=== PATIENT | male | born 1980 | race Two or more races ===

== ENCOUNTER 2024-04-26 12:26 | Emergency (ER) | payer MEDICAID, SELFPAY ==
[2024-04-26 12:42] VITALS: BP 147/91; PULSE 99; RESP 16; TEMP 37; O2SAT 100; BMI 26.4
--- NOTE | 2024-04-26 13:03 | PD.EDEAR ---
ED Ear RME/HPI General Chief complaint: Ear Stated complaint: LEFT EAR PAIN X 1 WK; MEDS RESCIBED FROM CLINIC Time Seen by Provider: 04/26/24 12:30 Source: patient Arrival date/time: 04/26/24 12:26 This is a 43-year-old male who presents to the emergency department with complaints of left ear plugging and pain x 2 weeks. Patient states he was seen by his PCP and prescribed ofloxacin in which he has completed his course. Reports his symptoms have not improved. Denies any other concerns or complaints. Mode of arrival: ambulatory Limitations: no limitations Related Data Previous Rx's ?Medication ?Instructions ?Recorded acetaminophen 325 mg/10.15 mL oral 650 mg (20.3 mL) feeding tube Q6HR 07/23/22 solution PRN Fever >101 #406 mL gabapentin 100 mg capsule 100 mg G-tube TID #30 caps 07/23/22 glycopyrrolate 1 mg tablet 1 mg PO BID #30 tabs 07/23/22 hydrochlorothiazide 12.5 mg capsule 25 mg (2 x 12.5 mg) feeding tube 07/23/22 QDAY #30 caps lactulose 20 gram/30 mL oral 20 g (30 mL) G-tube QID #1,200 mL 07/23/22 solution lisinopril 20 mg tablet 40 mg (2 x 20 mg) feeding tube 07/23/22 QDAY #30 tabs pantoprazole 40 mg intravenous 40 mg IV DAILY #1 ea 07/23/22 solution quetiapine 25 mg tablet 50 mg (2 x 25 mg) G-tube BID #30 07/23/22 tabs amoxicillin 875 mg-potassium 1 tab PO BID #14 tabs 04/26/24 clavulanate 125 mg tablet clotrimazole 1 % topical solution 1 applic topical BID #10 mL 04/26/24 Allergies Allergy/AdvReac Type Severity Reaction Status Date / Time No Known Allergies Allergy Verified 04/26/24 12:27 Review of Systems Review of Systems Systems Reviewed: All systems reviewed, normal except as documented Narrative Review of Systems: Gen: No fever, no chills, no weight loss EYES: No discharge, no visual changes, no pain HEENT: + ear pain, no congestion, no sore throat PULM: No shortness of breath, no cough, no congestion CV: No chest pain, no dyspnea on exertion, no palpitations GI: No nausea, no vomiting, no diarrhea, no pain, no constipation : No frequency, no urgency,? no dysuria Musc/skel: No joint pain, no back pain Skin: No rash? Psyc: No hallucinations, no depression Heme/Lymph: No easy bleeding or bruising tendencies Neuro: No weakness, no headache ED Exam General Limitations: Present no limitations General appearance: Present alert and in no apparent distress Head Head exam: Present atraumatic Eye Eye exam: Present normal appearance, PERRL and EOMI ENT ENT exam: Present normal oropharynx and mucous membranes moist Expanded ENT Exam TM/Canal exam: Left TM: canal discharge (white fluffy dc ) Neck Neck exam: Present normal inspection, full ROM and trachea midline Chest Chest inspection: Present normal inspection and symmetric chest wall rise Respiratory Respiratory exam: Present normal lung sounds bilaterally Cardiovascular Cardiovascular exam: Present regular rate, normal rhythm and normal heart sounds Abdominal Exam Abdominal exam: Present soft and normal bowel sounds Extremities Exam Extremities exam: Present normal inspection and full ROM Back Exam Back exam: Present normal inspection and full ROM Neurological Exam Neurological exam: Present alert, oriented X3 and CN II-XII intact Psychiatric Psychiatric exam: Present normal affect and normal mood Skin Skin exam: Present warm, dry, intact and normal color Course Quality Measures none Vital Signs Vital signs: Vital Signs Temperature 98.6 F 04/26/24 12:42 Pulse Rate 99 04/26/24 12:42 Respiratory Rate 16 04/26/24 12:42 Blood Pressure 147/91 H 04/26/24 12:42 Pulse Oximetry (%) 100 04/26/24 12:42 Oxygen Delivery Method Room Air 04/26/24 12:42 Ear Patient data External records reviewed:: [facility] previous records and Other (specify) Clinical information provided by:: patient Social determinants that could affect healthcare access:: none Patient has the following chronic illnesses:: no How is presenting disease/condition affected by chronic disease/condition?: no chronic disease Evaluation data The following diagnostics were reviewed and interpreted by me:: other (specify) Lab and/or radiology exams considered but not ordered:: no Interpretation Summary: no Medications / Prescriptions Medications or Prescriptions considered but not ordered:: no Medication administrations:: no Consultations Consultation(s) initiated? (list below): No Diagnosis Ear Differential Diagnosis: otitis externa, otitis media, foreign body in ear and cerumen impaction Most likely diagnosis given after review of the tests above:: Otitis externa. Most likely otomycosis Admission Indicated Admission indicated?: not indicated Admission Request Was there a request for admission?: No Disposition Plan Disposition Plan: Discharge Discharge Attestation Discharge Attestation: The patient and all family members were given an opportunity to ask questions and understood the discharge instructions. Discharge instructions specifically effects, indications for sooner follow up or return to the emergency department, and the expected course of current diagnosis. Patient condition: Stable Discharge Plan Plan Patient Disposition: HOME (Self Care) Patient condition on transfer: Stable Prescriptions/Referrals Prescriptions/Med Rec: New amoxicillin-pot clavulanate 875-125 mg tablet 1 tab PO BID Qty: 14 0RF clotrimazole 1 % solution 1 applic topical BID Qty: 10 0RF Rx Instructions: 1 drop to left ear BID a day for 10 days. No Action quetiapine 25 mg Tablet 50 mg G-tube BID Qty: 30 0RF glycopyrrolate 1 mg Tablet 1 mg PO BID Qty: 30 0RF lisinopril 20 mg Tablet 40 mg feeding tube QDAY Qty: 30 0RF pantoprazole 40 mg Recon Soln 40 mg IV DAILY Qty: 1 0RF hydrochlorothiazide 12.5 mg Capsule 25 mg feeding tube QDAY Qty: 30 0RF gabapentin 100 mg Capsule 100 mg G-tube TID Qty: 30 0RF acetaminophen 325 mg/10.15 mL Solution 650 mg feeding tube Q6HR PRN (Reason: Fever >101) Qty: 406 0RF lactulose 20 gram/30 mL Solution 20 g G-tube QID Qty: 1200 0RF Problem List Clinical Impression: Otitis media Patient/Caregiver Discharge Instructions Discharge Activity: activity as tolerated Education Materials: ED Otitis Media Antibiotic ... Additional Instructions: Se enviaron antibi?ticos orales a la farmacia. Por favor comience cristiano se indica Si sidra s?ntomas no mejoran dentro de las 2 semanas siguiente del al medicamento Por favor comience las nuevas gotas que envi? a la farmacia. antibiotics were sent to the pharmacy. Please start as directed If your symptoms do not improve within 2 weeks after the medication Please start the new drops that I sent to the pharmacy. Print Language: Urdu Stand Alone Forms: Edwige Award Info., Patient Portal Info Letter PA/STILL OPERATOR BRANDY Supervising Physician PA/STILL OPERATOR BRANDY Supervising Physician: dr German
== END 2024-04-26 13:29 | disposition home or self-care (01) ==
LOC: SERX 13:24
PROVIDERS: Emergency Provider Emergency Medicine; PCP Family Medicine
DX: H66.92 Otitis media, unspecified, left ear (principal)
CPT/HCPCS: 99281

== ENCOUNTER 2024-10-05 00:12 | Emergency (ER) | payer MEDICAID, SELFPAY ==
[2024-10-05 01:09] VITALS: BP 144/90; PULSE 86; RESP 18; TEMP 37.1; O2SAT 98; BMI 27.3
--- NOTE | 2024-10-05 01:25 | XR_ITS ---
Examination: CT brain head without contrast. 2-D sagittal coronal reconstructions Date and time of exam:October 05, 2024 at 0158 hours Comparison June 21, 2022 INDICATIONS: Nausea vomiting dizziness today CTDI: vol (mGy):53.9 DLP: (mGycm):1013 Technique: Multiple CT axial sections of the brain have been obtained, 5 mm slice thickness. Contrast has not been administered. 2-D sagittal, coronal reconstructions have been obtained Low dose protocols were performed. One or more of the following dose reduction techniques were used; automated exposure control, adjustment of the mA and/or KV according to patient size, use of iterative reconstruction technique. Findings: No significant ventricular enlargement. Intra-axial or extra-axial hemorrhage density is not seen. No mass effect or midline shift Basal cisterns are not remarkable. Fourth ventricle is midline. Cranial vault intact. Impression: Negative for acute hemorrhage, mass effect or midline shift Clinical correlation follow up accordingly advised
[2024-10-05] MEDS: METOCLOPRAMIDE 5 MG TABLET 10 MG PO (01:35)
--- NOTE | 2024-10-05 02:31 | PRELIM_ITS ---
CT scan of the head without intravenous contrast (axial sections with sagittal and coronal reformats). October 05, 2024 0158 hours Clinical History: Sudden CORNELL and N/V, dizziness Comparison: None Findings: There is no intracranial hemorrhage, extra-axial collection, mass, mass-effect or midline shift. There is good chau-white differentiation. There is no CT evidence of acute large vascular territorial infarct. Ventricles are not enlarged or effaced. Visualized paranasal sinuses and tympanomastoid cavities are clear except for trace maxillary sinus and sphenoid sinus mucosal thickening. The bony calvarium is intact. Impression: No intracranial hemorrhage, mass-effect or midline shift. No CT evidence of acute large vascular territorial infarct. Report Electronically Signed By: Willis Wren 10/05/2024 2:30:31 AM [EST]
[2024-10-05] MEDS: ONDANSETRON ODT 4 MG TABRAP PO (03:00)
[2024-10-05] MEDS: AMOXICILLIN/POT CLAV 875 TABLET 1 TAB PO (03:00)
[2024-10-05] MEDS: KETOROLAC INJ 60 MG/2 ML VIAL IM (03:01)
--- NOTE | 2024-10-05 06:04 | PD.EDHA ---
ED Headache RME/HPI General Chief Complaint: Nausea/Vomiting/Diarrhea Stated Complaint: VOMITING AND H/A Time Seen by Provider: 10/05/24 01:24 Arrival date/time: 10/05/24 00:12 43M with history of alcohol abuse (2 years sober) presents to ED with 1 day of CORNELL, nasal congestion, and N/V. Patient denies fall/trauma, dizziness, AMS, seizures, vision changes, and slurred speech. Limitations: no limitations Related Data Previous Rx's ?Medication ?Instructions ?Recorded acetaminophen 325 mg/10.15 mL oral 650 mg (20.3 mL) feeding tube Q6HR 07/23/22 solution PRN Fever >101 #406 mL gabapentin 100 mg capsule 100 mg G-tube TID #30 caps 07/23/22 glycopyrrolate 1 mg tablet 1 mg PO BID #30 tabs 07/23/22 hydrochlorothiazide 12.5 mg capsule 25 mg (2 x 12.5 mg) feeding tube 07/23/22 QDAY #30 caps lactulose 20 gram/30 mL oral 20 g (30 mL) G-tube QID #1,200 mL 07/23/22 solution lisinopril 20 mg tablet 40 mg (2 x 20 mg) feeding tube 07/23/22 QDAY #30 tabs pantoprazole 40 mg intravenous 40 mg IV DAILY #1 ea 07/23/22 solution quetiapine 25 mg tablet 50 mg (2 x 25 mg) G-tube BID #30 07/23/22 tabs amoxicillin 875 mg-potassium 1 tab PO BID #14 tabs 04/26/24 clavulanate 125 mg tablet clotrimazole 1 % topical solution 1 applic topical BID #10 mL 04/26/24 amoxicillin 875 mg-potassium 1 tab PO BID 7 days #14 tabs 10/05/24 clavulanate 125 mg tablet Allergies Allergy/AdvReac Type Severity Reaction Status Date / Time No Known Allergies Allergy Verified 04/26/24 12:27 Review of Systems Review of Systems Systems Reviewed: All systems reviewed, normal except as documented Constitutional Constitutional: Reports system reviewed and no additional complaints, except as documented, Reports as per HPI, Denies fever(s) and Reports headache(s) ENT Ears, Nose, Mouth, and Throat: Reports as per HPI, Denies disequilibrium, Reports headache(s) and Reports nasal congestion Cardiovascular Cardiovascular: Reports system reviewed and no additional complaints, except as documented, Denies chest pain and Denies dyspnea Respiratory Respiratory: Reports system reviewed and no additional complaints, except as documented, Denies cough and Denies dyspnea Gastrointestinal Gastrointestinal: Reports system reviewed and no additional complaints, except as documented, Reports as per HPI, Denies abdominal pain, Reports nausea and Reports vomiting Neurologic Neurologic: Reports system reviewed and no additional complaints, except as documented, Denies confusion, Denies disequilibrium and Reports headache(s) Psychiatric Psychiatric: Denies confusion Past Medical History Past Medical History NEUROLOGIC: Positive Seizures; Negative Neurological Disorders (Alcohol withdrawal seizure), Cerebrovascular Accident or Transient Ischemic Attacks (TIA) CARDIAC: Positive Cardiac Disorders and Hypertension; Negative Myocardial Infarction or Congestive Heart Failure RESPIRATORY: Negative Chronic Obstructive Pulmonary Disease (COPD), Asthma or Emphysema GASTROINTESTINAL: Negative Gastrointestinal Disorders, Liver Cancer or Pancreatic Cancer GENITOURINARY: Negative Genitourinary Disorders or Renal Disease REPRODUCTIVE: Negative Testicular Cancer MUSCULOSKELETAL: Negative Musculoskeletal Disorders, Muscular Dystrophy or Bone Cancer ENT: Negative Blind or Deafness ENDOCRINE: Positive Endocrine Disorders and Diabetes Mellitus Type 2; Negative Diabetes Mellitus Type 1 HEMATOLOGIC: Negative Blood Disorders, Anemia or Sickle Cell Disease PSYCHO/SOCIAL: Positive Depression and Anxiety OTHER HISTORY: Negative Down Syndrome, Developmental Delay, Anesthesia Reactions or Testicular Cancer Family History FAMILY HISTORY: Positive Family Cardiac Disorders (Parents hypertension); Negative Family Respiratory Disorders, Family Gastrointestinal Problems, Family Cancer or Family Surgery Social History SMOKING STATUS: Never smoker SECOND HAND EXPOSURE: No SUBSTANCE USE: does not use ED Exam General Limitations: Present no limitations General appearance: Present alert and in no apparent distress Head Head exam: Present atraumatic Eye Eye exam: Present normal appearance, PERRL and EOMI ENT ENT exam: Present normal oropharynx and mucous membranes moist Expanded ENT Exam Nose exam: Present sinus tenderness Neck Neck exam: Present normal inspection, full ROM and trachea midline Chest Chest inspection: Present normal inspection and symmetric chest wall rise Respiratory Respiratory exam: Present normal lung sounds bilaterally Cardiovascular Cardiovascular exam: Present regular rate, normal rhythm and normal heart sounds Abdominal Exam Abdominal exam: Present soft and normal bowel sounds Extremities Exam Extremities exam: Present normal inspection and full ROM Back Exam Back exam: Present normal inspection and full ROM Neurological Exam Neurological exam: Present alert, oriented X3 and CN II-XII intact Psychiatric Psychiatric exam: Present normal affect and normal mood Skin Skin exam: Present warm, dry, intact and normal color Course Quality Measures none Orders Category Date Time Status CT head/brain wo con Stat Exams 10/05/24 01:25 Taken Amoxicillin/Pot Clav 875 [Augmentin 875] Med 10/05/24 02:54 Discontinued 1 tab PO X1 ONE Ketorolac Inj [Toradol Inj] Med 10/05/24 02:54 Discontinued 60 mg IM X1 ONE Metoclopramide [Reglan] Med 10/05/24 01:24 Discontinued 10 mg PO X1 ONE Ondansetron Odt [Zofran Odt] Med 10/05/24 02:54 Discontinued 4 mg PO X1 ONE Vital Signs Vital signs: Vital Signs Temperature 98.7 F 10/05/24 01:09 Pulse Rate 86 10/05/24 01:09 Respiratory Rate 18 10/05/24 01:09 Blood Pressure 144/90 H 10/05/24 01:09 Pulse Oximetry (%) 98 10/05/24 01:09 Oxygen Delivery Method Room Air 10/05/24 01:09 O2 at 98% on RA and WNLs Headache MDM Narrative MDM Narrative:: 43M with history of alcohol abuse (2 years sober) presents to ED with 1 day of CORNELL, nasal congestion, and N/V. Patient denies fall/trauma, dizziness, AMS, seizures, vision changes, and slurred speech. Physical exam reveals normal pupil response and EOM. CN II=XII grossly intact. Sinus tenderness. Patient is afebrile, calm, and alert. CT mild sinusitis. Meds improved symptoms. Patient data External records reviewed:: [facility] previous records Clinical information provided by:: patient Social determinants that could affect healthcare access:: alcohol use Patient has the following chronic illnesses:: alcohol abuse How is presenting disease/condition affected by chronic disease/condition?: exacerbated by Evaluation data The following diagnostics were reviewed and interpreted by me:: radiology exam(s) Lab and/or radiology exams considered but not ordered:: ordered Interpretation Summary: above Medications / Prescriptions Medications or Prescriptions considered but not ordered:: ordered Medication administrations:: Medication Administration History Discontinued Medications Amoxicillin/Clavulanate Potassium (Amoxicillin/Pot Clav 875 Tablet) 1 tab PO X1 ONE Stop: 10/05/24 02:55 Last Admin: 10/05/24 03:00 Dose: 1 tab Documented By: JOHN Ketorolac Tromethamine (Ketorolac Inj 60 Mg/2 Ml Vial) 60 mg IM X1 ONE Stop: 10/05/24 02:55 Last Admin: 10/05/24 03:01 Dose: 60 mg Documented By: JOHN Metoclopramide HCl (Metoclopramide 5 Mg Tablet) 10 mg PO X1 ONE Stop: 10/05/24 01:25 Last Admin: 10/05/24 01:35 Dose: 10 mg Documented By: JOHN Ondansetron HCl (Ondansetron Odt 4 Mg Tabrap) 4 mg PO X1 ONE; Protocol Stop: 10/05/24 02:55 Last Admin: 10/05/24 03:00 Dose: 4 mg Documented By: JOHN above Consultations Consultation(s) initiated? (list below): No Diagnosis Differential diagnosis headache: migraine, tension headache, subarachnoid hemorrhage, headache, meningitis, sinusitis and postconcussion syndrome Most likely diagnosis given after review of the tests above:: sinusitis Admission Indicated Admission indicated?: not indicated Admission Request Was there a request for admission?: No Disposition Plan Disposition Plan: Discharge Discharge Attestation Discharge Attestation: The patient and all family members were given an opportunity to ask questions and understood the discharge instructions. Discharge instructions specifically effects, indications for sooner follow up or return to the emergency department, and the expected course of current diagnosis. Patient condition: Stable Discharge Plan Plan Patient Disposition: HOME (Self Care) Disposition Comment: Stable Prescriptions/Referrals Prescriptions/Med Rec: New amoxicillin-pot clavulanate 875-125 mg tablet 1 tab PO BID 7 Days Qty: 14 0RF No Action amoxicillin-pot clavulanate 875-125 mg tablet 1 tab PO BID Qty: 14 0RF clotrimazole 1 % solution 1 applic topical BID Qty: 10 0RF Rx Instructions: 1 drop to left ear BID a day for 10 days. quetiapine 25 mg Tablet 50 mg G-tube BID Qty: 30 0RF glycopyrrolate 1 mg Tablet 1 mg PO BID Qty: 30 0RF lisinopril 20 mg Tablet 40 mg feeding tube QDAY Qty: 30 0RF pantoprazole 40 mg Recon Soln 40 mg IV DAILY Qty: 1 0RF hydrochlorothiazide 12.5 mg Capsule 25 mg feeding tube QDAY Qty: 30 0RF gabapentin 100 mg Capsule 100 mg G-tube TID Qty: 30 0RF acetaminophen 325 mg/10.15 mL Solution 650 mg feeding tube Q6HR PRN (Reason: Fever >101) Qty: 406 0RF lactulose 20 gram/30 mL Solution 20 g G-tube QID Qty: 1200 0RF Referrals: No Primary/Family,Physician [Primary Care Provider] - In 1 week Problem List Clinical Impression: Sinusitis Patient/Caregiver Discharge Instructions Education Materials: ED Sinusitis (Antibiotic Treatment) Additional Instructions: Please follow-up with PCP within 24-48 hours and return immediately if symptoms worsen. Ibuprofen/Tylenol can be used simultaneously for greater fever/pain control. Print Language: Tongan Stand Alone Forms: Patient Portal Info Letter PA/UX DESIGNER Supervising Physician PA/UX DESIGNER Supervising Physician: Dr. Mcclelland
== END 2024-10-05 04:08 | disposition home or self-care (01) ==
PROVIDERS: Emergency Provider Emergency Medicine
DX: J32.9 Chronic sinusitis, unspecified (principal)
CPT/HCPCS: 70450; 96372; 99284; J1885; Q0162; A9270

== ENCOUNTER 2025-02-05 12:59 | Emergency (ER) | payer MEDICAID, SELFPAY ==
[2025-02-05 13:15] VITALS: BP 143/93; PULSE 63; RESP 18; TEMP 36.8; O2SAT 98; BMI 27.2
--- NOTE | 2025-02-05 13:16 | XR_ITS ---
Examination: CT brain head without contrast. 2-D sagittal coronal reconstructions Date and time of exam: 02/05/2025 1:43 PM CTDI: vol (mGy):50.3 DLP: (mGycm):1035 Headache COMPARISON: 10/05/2024 Technique: Multiple CT axial sections of the brain have been obtained, 5 mm slice thickness. Contrast has not been administered. 2-D sagittal, coronal reconstructions have been obtained Low dose protocols were performed. One or more of the following dose reduction techniques were used; automated exposure control, adjustment of the mA and/or KV according to patient size, use of iterative reconstruction technique. Findings: No significant ventricular enlargement. Intra-axial or extra-axial hemorrhage density is not seen. No mass effect or midline shift Basal cisterns are not remarkable. Fourth ventricle is midline. Cranial vault intact. Impression: Negative for acute hemorrhage, mass effect or midline shift
[2025-02-05 13:38] LABS: Collection Type, Urine Clean Catch; Squamous Epithelial Cell,Urine 0 /hpf (0-5)
[2025-02-05 13:44] LABS: Basophils # (Auto) 0.0 Thou/mm3 (0.0-0.2); Basophils % (Auto) 0 % (0-2.5); Eosinophils # (Auto) 0.2 Thou/mm3 (0.0-0.5); Eosinophils % (Auto) 3 % (0-10); Hematocrit 43.9 % (41.0-53.0); Hemoglobin 15.0 g/dL (13.5-16.0); Immature Granulocytes Auto 0.02 Thou/mm3 (0.00-0.00); Lymphocytes # (Auto) 2.7 Thou/mm3 (1.0-4.8); Lymphocytes % (Auto) 33 % (10-50); Mean Corpuscular HGB Conc 34.2 g/dl (31.0-37.0); Mean Corpuscular Hemoglobin 29.1 pg (25.0-35.0); Mean Corpuscular Volume 85 fL (80-100); Monocytes # (Auto) 0.6 Thou/mm3 (0.0-0.8); Monocytes % (Auto) 7 % (0-12); Neutrophils # (Auto) 4.7 Thou/mm3 (1.8-7.7); Neutrophils % (Auto) 57 % (37-80); Nucleated Red Blood Cell # 0.00 Thou/mm3 (0.00-0.00); Nucleated Red Blood Cell % 0 /100 WBC (0); Platelet Count 217 Thou/mm3 (140-440); RDW Standard Deviation 40.9 fL (35.1-43.9); Red Blood Count 5.15 Miln/mm3 (4.50-5.90); White Blood Count 8.2 Thou/mm3 (3.8-10.6)
[2025-02-05 13:50] LABS: Bilirubin,Urine Negative (Negative); Blood,Urine Negative (Negative); Clarity,Urine Clear (Clear/Hazy); Color,Urine Lt-Yellow (Lt Yel-Yel); Culture Indicated,Urine Not Indicated; Glucose, Urine 4+ (Negative); Ketones,Urine Negative (Negative); Leukocyte Esterase,Urine Negative (Negative); Nitrite,Urine Negative (Negative); PH,Urine 5.5 (5.0-7.0); Protein,Urine Negative (Neg - Trace); RBC,Urine 1 /hpf (0-3); Specific Gravity,Urine 1.024 (1.001-1.035); Urobilinogen,Urine Negative mg/dL (0.0-1.0); WBC,Urine 1 /hpf (0-5)
[2025-02-05 13:52] LABS: Amphetamine/Methamp Scrn,U Negative (Negative); Barbiturate Screen,Urine Negative (Negative); Benzodiazepines Screen,Urine Negative (Negative); Benzoylecgonine Screen, Ur Negative (Negative); Fentanyl Screen,Urine Negative (Negative); Opiate Screen,Urine Negative (Negative); THC Screen,Urine Negative (Negative)
[2025-02-05 14:08] LABS: Alanine Aminotransferase 13 U/L (10-49); Albumin, Serum 4.8 gm/dL (3.5-5.0); Albumin/Globulin Ratio 1.9 (1.2-2.2); Alkaline Phosphatase 57 U/L (46-116); Anion Gap 7 (7-16); Aspartate Amino Transferase 15 U/L (0-34); BUN/Creatinine Ratio 11 Ratio (12-20); Bilirubin,Total 0.5 mg/dL (0.3-1.2); Blood Urea Nitrogen 14 mg/dL (9-23); Calcium 9.9 mg/dL (8.3-10.6); Calcium (Corrected) 9.9 mg/dL (8.5-10.1); Carbon Dioxide 25.9 mMol/L (20.0-31.0); Chloride 106 mMol/L (98-107); Creatinine (Component) 1.3 mg/dL (0.6-1.3); Estimated Creatinine Clearance 70.9 mL/min (>60); Globulin 2.5 gm/dL (2.3-3.5); Glucose 90 mg/dL (74-106); Osmolality,Calculated 278 (275-295); Potassium 4.4 mMol/L (3.4-5.1); Sodium 139 mMol/L (136-145); Total Protein 7.3 gm/dL (5.7-8.2); eGFR > 60 See Note
--- NOTE | 2025-02-05 14:44 | PD.EDURI ---
Upper Respiratory Inf. RME/HPI General Chief Complaint: Headache Stated Complaint: HEADACHE, BODY ACHES Time Seen by Provider: 02/05/25 13:05 Arrival date/time: 02/05/25 12:59 43-year-old male presents to the emergency department today for complaint of generalized bodyaches and headache. Patient reports bodyaches ongoing for last couple of weeks and headache ongoing for the last couple of months. Patient reports no fever nausea or vomiting Limitations: no limitations Related Data Previous Rx's ?Medication ?Instructions ?Recorded acetaminophen 325 mg/10.15 mL oral 650 mg (20.3 mL) feeding tube Q6HR 07/23/22 solution PRN Fever >101 #406 mL gabapentin 100 mg capsule 100 mg G-tube TID #30 caps 07/23/22 glycopyrrolate 1 mg tablet 1 mg PO BID #30 tabs 07/23/22 hydrochlorothiazide 12.5 mg capsule 25 mg (2 x 12.5 mg) feeding tube 07/23/22 QDAY #30 caps lactulose 20 gram/30 mL oral 20 g (30 mL) G-tube QID #1,200 mL 07/23/22 solution lisinopril 20 mg tablet 40 mg (2 x 20 mg) feeding tube 07/23/22 QDAY #30 tabs pantoprazole 40 mg intravenous 40 mg IV DAILY #1 ea 07/23/22 solution quetiapine 25 mg tablet 50 mg (2 x 25 mg) G-tube BID #30 07/23/22 tabs amoxicillin 875 mg-potassium 1 tab PO BID #14 tabs 04/26/24 clavulanate 125 mg tablet clotrimazole 1 % topical solution 1 applic topical BID #10 mL 04/26/24 acetaminophen-caffeine 500 mg-65 1 tab PO Q6H PRN pain #30 tabs 02/05/25 mg tablet (Excedrin Tension Headache) ibuprofen 800 mg tablet 800 mg PO TID PRN pain #30 tabs 02/05/25 Allergies Allergy/AdvReac Type Severity Reaction Status Date / Time No Known Allergies Allergy Verified 02/05/25 13:04 Review of Systems Review of Systems Systems Reviewed: All systems reviewed, normal except as documented Constitutional Constitutional: Reports system reviewed and no additional complaints, except as documented, Denies fever(s) and Reports headache(s) Eyes Eyes: Reports system reviewed and no additional complaints, except as documented and Denies blurry vision ENT Ears, Nose, Mouth, and Throat: Reports system reviewed and no additional complaints, except as documented, Reports headache(s), Denies nasal congestion and Denies nasal discharge Cardiovascular Cardiovascular: Reports system reviewed and no additional complaints, except as documented, Denies chest pain and Denies dyspnea Respiratory Respiratory: Reports system reviewed and no additional complaints, except as documented, Denies chest congestion, Denies cough and Denies dyspnea Gastrointestinal Gastrointestinal: Reports system reviewed and no additional complaints, except as documented and Denies abdominal pain Integumentary/Breasts Skin/Breast: Reports system reviewed and no additional complaints, except as documented and Denies rash Neurologic Neurologic: Reports system reviewed and no additional complaints, except as documented, Reports as per HPI and Reports headache(s) Past Medical History Past Medical History NEUROLOGIC: Positive Seizures; Negative Neurological Disorders (Alcohol withdrawal seizure), Cerebrovascular Accident or Transient Ischemic Attacks (TIA) CARDIAC: Positive Cardiac Disorders and Hypertension; Negative Myocardial Infarction or Congestive Heart Failure RESPIRATORY: Negative Chronic Obstructive Pulmonary Disease (COPD), Asthma or Emphysema GASTROINTESTINAL: Negative Gastrointestinal Disorders, Liver Cancer or Pancreatic Cancer GENITOURINARY: Negative Genitourinary Disorders or Renal Disease REPRODUCTIVE: Negative Testicular Cancer MUSCULOSKELETAL: Negative Musculoskeletal Disorders, Muscular Dystrophy or Bone Cancer ENT: Negative Blind or Deafness ENDOCRINE: Positive Endocrine Disorders and Diabetes Mellitus Type 2; Negative Diabetes Mellitus Type 1 HEMATOLOGIC: Negative Blood Disorders, Anemia or Sickle Cell Disease PSYCHO/SOCIAL: Positive Depression and Anxiety OTHER HISTORY: Negative Down Syndrome, Developmental Delay, Anesthesia Reactions or Testicular Cancer Family History FAMILY HISTORY: Positive Family Cardiac Disorders (Parents hypertension); Negative Family Respiratory Disorders, Family Gastrointestinal Problems, Family Cancer or Family Surgery Social History SMOKING STATUS: Never smoker SECOND HAND EXPOSURE: No SUBSTANCE USE: does not use ED Exam General Limitations: Present no limitations General appearance: Present alert and in no apparent distress Head Head exam: Present atraumatic, normocephalic and normal inspection Eye Eye exam: Present normal appearance, PERRL and EOMI; Absent conjunctival injection ENT ENT exam: Present normal exam, normal oropharynx and mucous membranes moist Neck Neck exam: Present normal inspection, full ROM and trachea midline Chest Chest inspection: Present normal inspection and symmetric chest wall rise Respiratory Respiratory exam: Present normal lung sounds bilaterally; Absent respiratory distress Cardiovascular Cardiovascular exam: Present regular rate, normal rhythm and normal heart sounds Abdominal Exam Abdominal exam: Present soft and normal bowel sounds Extremities Exam Extremities exam: Present normal inspection and full ROM Back Exam Back exam: Present normal inspection and full ROM Neurological Exam Neurological exam: Present alert, oriented X3, CN II-XII intact, normal gait and reflexes normal; Absent motor sensory deficit Psychiatric Psychiatric exam: Present normal affect and normal mood Skin Skin exam: Present warm, dry, intact and normal color Course Quality Measures none Orders Category Date Time Status CT head/brain wo con Stat Exams 02/05/25 13:16 Completed CBC Stat Lab 02/05/25 13:25 Completed Comprehensive Metabolic Panel Stat Lab 02/05/25 13:25 Completed Drug Screen,Urine Stat Lab 02/05/25 13:25 Completed UA, C/S IF [Urinalysis, C/S if Indicated] Stat Lab 02/05/25 13:25 Completed Vital Signs Vital signs: Vital Signs Temperature 98.2 F 02/05/25 13:15 Pulse Rate 63 02/05/25 13:15 Respiratory Rate 18 02/05/25 13:15 Blood Pressure 143/93 H 02/05/25 13:15 Pulse Oximetry (%) 98 02/05/25 13:15 Oxygen Delivery Method Room Air 02/05/25 13:15 O2 saturation 98% on room air within normal limits Upper Respiratory Infection MDM Narrative MDM Narrative:: 43-year-old male presents to the emergency department today for complaint of generalized bodyaches and headache. Patient reports bodyaches ongoing for last couple of weeks and headache ongoing for the last couple of months. Patient reports no fever nausea or vomiting On exam patient well-appearing patient does not appear close no acute distress Lab work and imaging obtained no acute emergent findings noted Patient discharged home in no distress to follow-up with primary care doctor in the next 24 to 48 hours and for any worsening symptoms to return to the ER immediately Patient data External records reviewed:: [facility] previous records Clinical information provided by:: patient Social determinants that could affect healthcare access:: none Patient has the following chronic illnesses:: None How is presenting disease/condition affected by chronic disease/condition?: no chronic disease Evaluation data The following diagnostics were reviewed and interpreted by me:: lab results and radiology exam(s) Lab and/or radiology exams considered but not ordered:: Labs radiology obtained Interpretation Summary: Reviewed by me Medications / Prescriptions Medications or Prescriptions considered but not ordered:: Given Medication administrations:: Given Consultations Consultation(s) initiated? (list below): No Diagnosis Upper Respiratory Differential Diagnosis: sinusitis, viral infection, bronchitis and influenza Most likely diagnosis given after review of the tests above:: Illness Admission Indicated Admission indicated?: not indicated Admission Request Was there a request for admission?: No Disposition Plan Disposition Plan: Discharge Discharge Attestation Discharge Attestation: The patient and all family members were given an opportunity to ask questions and understood the discharge instructions. Discharge instructions specifically effects, indications for sooner follow up or return to the emergency department, and the expected course of current diagnosis. Patient condition: Stable Discharge Plan Plan Patient Disposition: HOME (Self Care) Discharge Disposition comment: Stable Prescriptions/Referrals Prescriptions/Med Rec: New Excedrin Tension Headache 500-65 mg tablet 1 tab PO Q6H PRN (Reason: pain) Qty: 30 0RF ibuprofen 800 mg tablet 800 mg PO TID PRN (Reason: pain) Qty: 30 0RF No Action amoxicillin-pot clavulanate 875-125 mg tablet 1 tab PO BID Qty: 14 0RF clotrimazole 1 % solution 1 applic topical BID Qty: 10 0RF Rx Instructions: 1 drop to left ear BID a day for 10 days. quetiapine 25 mg Tablet 50 mg G-tube BID Qty: 30 0RF glycopyrrolate 1 mg Tablet 1 mg PO BID Qty: 30 0RF lisinopril 20 mg Tablet 40 mg feeding tube QDAY Qty: 30 0RF pantoprazole 40 mg Recon Soln 40 mg IV DAILY Qty: 1 0RF hydrochlorothiazide 12.5 mg Capsule 25 mg feeding tube QDAY Qty: 30 0RF gabapentin 100 mg Capsule 100 mg G-tube TID Qty: 30 0RF acetaminophen 325 mg/10.15 mL Solution 650 mg feeding tube Q6HR PRN (Reason: Fever >101) Qty: 406 0RF lactulose 20 gram/30 mL Solution 20 g G-tube QID Qty: 1200 0RF Problem List Clinical Impression: Body aches, Headache Patient/Caregiver Discharge Instructions Education Materials: Understanding the Pain Response Additional Instructions: Please follow up with your primary care doctor in the next 24-48hrs for any worsening symptoms return here immediately Print Language: Polish Stand Alone Forms: Edwige Award Info., Patient Portal Info Letter PA/[employer] Supervising Physician PA/YVETTE Supervising Physician: Dr. Newton
== END 2025-02-05 15:41 | disposition home or self-care (01) ==
PROVIDERS: Nurse Practitioner Primary Care; Emergency Provider Emergency Medicine
DX: R51.9 Headache, unspecified (principal)
CPT/HCPCS: 36415; 70450; 80053; 80307; 81001; 85025; 99283